=== PATIENT | male | born 1995 | race Caucasian/White ===

== ENCOUNTER 2020-02-04 02:39 | Inpatient (IN) | payer MEDICAID ==
[~2020-02-04] VITALS: Ht 195.6 cm; Wt 127.0 kg
[2020-02-04 04:34] VITALS: BMI 33.2
[2020-02-04 04:39] VITALS: BP 134/77
[2020-02-04] MEDS ORDERED: WELLBUTRIN XL150 M1 PO (05:14)
[2020-02-04] MEDS ORDERED: BENADRYL25 MG PO (05:15)
[2020-02-04] MEDS ORDERED: PROTONIX40 MG PO (05:29)
[2020-02-04 07:24] LABS: BASOPHILS 0.1 % (0-2); EOSINOPHILS 0.1 % (0-7); HEMATOCRIT 41.5 % (42.0-54.0); HEMOGLOBIN 14.1 g/dL (13.5-17.5); IMMATURE GRANULOCYTES 0.3 % (0-5); LYMPHOCYTES 8.9 % (15-50); MCH 30.1 pg (26.0-34.0); MCV 88.5 fL (80.0-100.0); MEAN PLATELET VOLUME 9.3 fL (7.4-10.4); MONOCYTES 8.7 % (2-11); NEUTROPHILS 81.9 % (40-80); PLATELET COUNT 186 10x3/uL (130-400); RBC 4.69 10x6/uL (4.20-6.10); RDW 13.2 % (11.5-14.5); WBC 14.9 10x3/uL (4.8-10.8)
[2020-02-04 08:00] VITALS: BP 131/88
[2020-02-04 08:02] LABS: CALC OSMOLALITY 280 mosm/kg (275-300); CALCIUM 8.3 mg/dL (8.5-10.1); CARBON DIOXIDE 22.9 mmol/L (21.0-32.0); CHLORIDE - SERUM 104 mmol/L (98-107); CHOL - HDL RATIO 5.9 ratio (2.3-4.9); CHOLESTEROL, TOTAL 148 mg/dL (0-200); CKMB 34.2 U/L (0.0-3.6); CREATININE - SERUM 4.5 mg/dL (0.6-1.3); GLUCOSE 96 mg/dL (74-106); HDL CHOLESTEROL 25 mg/dL (32-96); LDL CHOLESTEROL 52 mg/dL (0-100); LDL-HDL RATIO 2.1 ratio (1.5-3.5); PHOSPHOROUS 4.2 mg/dL (2.5-4.9); POTASSIUM - SERUM 5.4 mmol/L (3.5-5.1); SODIUM 138 mmol/L (136-145); TRIGLYCERIDE 358 mg/dL (30-200); UREA NITROGEN 27 mg/dL (7-18); eGFR NON AFRICAN AMERICAN 17 mL/min (90-120)
[2020-02-04 08:15] LABS: CREATINE KINASE 24853 UL (21-232)
[2020-02-04 08:22] VITALS: BMI 33.2
[2020-02-04 08:22] LABS: TROPONIN-I 0.963 ng/mL (0.000-0.060)
[2020-02-04 08:36] VITALS: BP 131/88
[2020-02-04 11:25] LABS: CKMB 35.1 U/L (0.0-3.6)
[2020-02-04 11:26] LABS: CREATINE KINASE 25109 UL (21-232); TROPONIN-I 0.788 ng/mL (0.000-0.060)
[2020-02-04 12:00] VITALS: BP 130/85
[2020-02-04 16:00] VITALS: BP 138/77
[2020-02-04 16:24] LABS: CKMB 39.5 U/L (0.0-3.6)
[2020-02-04 16:33] LABS: CREATINE KINASE 24260 UL (21-232); TROPONIN-I 0.697 ng/mL (0.000-0.060)
[2020-02-04 20:46] VITALS: BP 121/76
[2020-02-04 21:37] LABS: CKMB 31.7 U/L (0.0-3.6)
[2020-02-04 21:38] LABS: CREATINE KINASE 23600 UL (21-232)
[2020-02-04 21:39] LABS: TROPONIN-I 0.641 ng/mL (0.000-0.060)
[2020-02-05 04:45] VITALS: BP 140/86
[2020-02-05 06:12] LABS: BASOPHILS 0.2 % (0-2); EOSINOPHILS 0.6 % (0-7); HEMATOCRIT 37.4 % (42.0-54.0); HEMOGLOBIN 12.6 g/dL (13.5-17.5); IMMATURE GRANULOCYTES 0.4 % (0-5); MCH 30.2 pg (26.0-34.0); MCHC 33.7 g/dL (31.0-37.0); MCV 89.7 fL (80.0-100.0); MEAN PLATELET VOLUME 9.8 fL (7.4-10.4); MONOCYTES 8.8 % (2-11); PLATELET COUNT 190 10x3/uL (130-400); RBC 4.17 10x6/uL (4.20-6.10); RDW 13.2 % (11.5-14.5)
[2020-02-05 06:19] LABS: WBC 9.5 10x3/uL (4.8-10.8)
[2020-02-05 06:40] LABS: ALBUMIN 3.4 g/dL (3.4-5.0); ALKALINE PHOSPHATASE 50 U/L (30-120); ALT (SGPT) 119 U/L (10-68); BILIRUBIN - TOTAL 1.16 mg/dL (0.2-1.3); CALCIUM 8.3 mg/dL (8.5-10.1); CARBON DIOXIDE 21.7 mmol/L (21.0-32.0); CHLORIDE - SERUM 104 mmol/L (98-107); GLUCOSE 85 mg/dL (74-106); POTASSIUM - SERUM 4.9 mmol/L (3.5-5.1); PROTEIN - SERUM 6.3 g/dL (6.4-8.2); SODIUM 139 mmol/L (136-145)
[2020-02-05 06:45] LABS: CALC OSMOLALITY 286 mosm/kg (275-300); CREATINE KINASE 19900 UL (21-232); CREATININE - SERUM 7.3 mg/dL (0.6-1.3); UREA NITROGEN 40 mg/dL (7-18); eGFR NON AFRICAN AMERICAN 10 mL/min (90-120)
[2020-02-05 08:00] VITALS: BP 149/94
[2020-02-05 10:08] VITALS: Ht 195.6 cm; Wt 127.0 kg
[2020-02-05 10:49] LABS: BILIRUBIN NEGATIVE (NEGATIVE); KETONE NEGATIVE (NEGATIVE); NITRITE NEGATIVE (NEGATIVE); UROBILINOGEN NORMAL (NORMAL)
[2020-02-05 10:51] LABS: BACTERIA FEW /hpf (NONE SEEN); WHITE CELLS - URINE 0-5 /hpf (0-5)
[2020-02-05 10:52] LABS: UDS - AMPHET NEGATIVE QUAL (NEGATIVE); UDS - BARB NEGATIVE QUAL (NEGATIVE); UDS - BENZO NEGATIVE QUAL (NEGATIVE); UDS - COCAINE NEGATIVE QUAL (NEGATIVE); UDS - OPIATE NEGATIVE QUAL (NEGATIVE); UDS - PCP NEGATIVE QUAL (NEGATIVE); UDS - THC POSITIVE QUAL (NEGATIVE)
[2020-02-05 12:00] VITALS: BP 165/90
[2020-02-05] MEDS ORDERED: CIALIS10 MG PO (12:36)
--- NOTE | 2020-02-05 14:27 | NUR ---
14FRENCH NEWMAN CATHETER PLACED. ONLY HAD 10CC OF URINE OUT.
[2020-02-05 15:59] LABS: ANION GAP 15.4 mmol/L (8-16); CARBON DIOXIDE 20.3 mmol/L (21.0-32.0); CREATININE - SERUM 8.1 mg/dL (0.6-1.3); POTASSIUM - SERUM 4.7 mmol/L (3.5-5.1)
[2020-02-05 16:08] LABS: PHOSPHOROUS 5.6 mg/dL (2.5-4.9)
[2020-02-05 16:15] VITALS: BP 139/79
--- NOTE | 2020-02-05 21:10 | NUR ---
INITIAL ROUNDS AND ASSESSMENT COMPLETED. PT RESTING IN BED. IVF INFUSING. NONLABORED RESPIRATIONS ON ROOM AIR. NEWMAN PATENT TO BEDSIDE DRAIN BAG. CPOC.
[2020-02-05 21:30] VITALS: BP 160/97
--- NOTE | 2020-02-05 22:57 | NUR ---
BEDTIME MEDS GIVEN. IVF INFUSING AT 200ML/HR. NEWMAN PATENT. PT ALSO GIVEN ZOFRAN FOR NAUSEA. CPOC.
[2020-02-06 04:30] VITALS: BP 134/85
[2020-02-06 06:04] LABS: BASOPHILS 0.3 % (0-2); EOSINOPHILS 0.4 % (0-7); HEMATOCRIT 35.6 % (42.0-54.0); IMMATURE GRANULOCYTES 0.1 % (0-5); MCH 29.9 pg (26.0-34.0); MCHC 33.7 g/dL (31.0-37.0); MCV 88.6 fL (80.0-100.0); MEAN PLATELET VOLUME 9.8 fL (7.4-10.4); MONOCYTES 9.2 % (2-11); PLATELET COUNT 153 10x3/uL (130-400); RBC 4.02 10x6/uL (4.20-6.10); WBC 7.4 10x3/uL (4.8-10.8)
[2020-02-06 06:36] LABS: ALBUMIN 3.3 g/dL (3.4-5.0); ALKALINE PHOSPHATASE 56 U/L (30-120); ALT (SGPT) 128 U/L (10-68); CALC OSMOLALITY 288 mosm/kg (275-300); CALCIUM 8.3 mg/dL (8.5-10.1); CARBON DIOXIDE 20.7 mmol/L (21.0-32.0); CHLORIDE - SERUM 105 mmol/L (98-107); CKMB 13.3 U/L (0.0-3.6); CREATININE - SERUM 9.3 mg/dL (0.6-1.3); GLUCOSE 85 mg/dL (74-106); PROTEIN - SERUM 6.2 g/dL (6.4-8.2); SODIUM 138 mmol/L (136-145); UREA NITROGEN 51 mg/dL (7-18); eGFR NON AFRICAN AMERICAN 7 mL/min (90-120)
[2020-02-06 06:37] LABS: POTASSIUM - SERUM 5.5 mmol/L (3.5-5.1)
[2020-02-06 06:53] LABS: CREATINE KINASE 18800 UL (21-232)
--- NOTE | 2020-02-06 07:24 | NUR ---
PT UP TO THE BATHROOM, STATES THAT EVERYTIME HE HAS A BM THERE IS BLOOD IN HIS STOOL. ASKED PT IF HE HAS HEMORRHOIDS AND PT STATED NO. WILL PLACED HAT IN BATHROOM TO SEE WHAT HIS STOOL LOOKS LIKE NEXT TIME HE HAS A BM. 4MF OF ZOFRAN GIVEN AT THIS TIME FOR NAUSEA. PT A/O X4, RT WRIST IV INFUSING NS AT 200CC/HR. NEWMAN DRAINING YELLOW URINE TO GRAVITY. PT DENIES ANY OTHER NEEDS AT THIS TIME. CALL LIGHT IN REACH, NAD NOTED, WILL CONTINUE PLAN OF CARE.
--- NOTE | 2020-02-06 08:40 | NUR ---
NOTIFIED DR. HANNA OF HIGH BP.
--- NOTE | 2020-02-06 08:58 | NUR ---
CALLED PHARMACY AND SPOKE WITH SANIA, INFORMED HIM THAT I NEED METHADONE FOR PT, NOT ENOUGH TABLETS IN PYXIS. ALSO ASKED HIM IF SODIUM BICARB ORDERED IS IV PUSH, AND HE STATED THAT IT WAS GIVEN IV PUSH.
[2020-02-06 09:46] VITALS: BP 166/97
--- NOTE | 2020-02-06 10:27 | NUR ---
CALLED PHARMACY AGAIN AND SPOKE WITH SANIA, INFOMRED HIM THAT I STILL NEED METHODONE FOR PT IF HE WANTS ME TO PUT NOT GIVEN DUE TO MEDICATION NOT BEING AVAILABLE. PER SANIA A SUPERVISING LIBRARIAN IS ON HIS WAY WITH MEDICATION.
--- NOTE | 2020-02-06 12:00 | NUR ---
UPDATED PT'S FATHER ON PLAN OF CARE.
[2020-02-06 13:05] VITALS: BP 158/90
[2020-02-06 13:12] LABS: ANION GAP 19.8 mmol/L (8-16); CALCIUM 8.3 mg/dL (8.5-10.1); CARBON DIOXIDE 17.8 mmol/L (21.0-32.0); POTASSIUM - SERUM 4.6 mmol/L (3.5-5.1)
[2020-02-06 13:59] VITALS: BP 158/90
[2020-02-06 16:09] VITALS: BP 157/90
--- NOTE | 2020-02-06 20:00 | NUR ---
REPORT REIEVED AND ROUNDING COMPLETE. PATIENT USING THE REST ROOM WHEN I ENTERED, WAS CONCERNED BECAUSE THERE WAS BLOOD ON THE TOILETPAPER. DISCUSSED THIS AND DID SOME TEACHING. PATIENT THEN STATES HE IS NAUSEOUS AND NEEDED SOMETHING, TREATED PER MAR. NO DISTRESS NOTED AT THIS TIME. NEWMAN CATH IN PLACE WITH CLEAR URINE IN COLLECTION BAG. CALL LIGHT WITHIN REACH AND BED IN LOWEST LOCKED POSITION.
[2020-02-07 04:00] VITALS: BP 156/94
[2020-02-07 06:21] LABS: BASOPHILS 0.3 % (0-2); EOSINOPHILS 1.2 % (0-7); HEMATOCRIT 34.7 % (42.0-54.0); HEMOGLOBIN 12.4 g/dL (13.5-17.5); IMMATURE GRANULOCYTES 0.3 % (0-5); LYMPHOCYTES 15.6 % (15-50); MCH 31.2 pg (26.0-34.0); MCHC 35.7 g/dL (31.0-37.0); MCV 87.2 fL (80.0-100.0); MONOCYTES 10.7 % (2-11); NEUTROPHILS 71.9 % (40-80); PLATELET COUNT 177 10x3/uL (130-400); RBC 3.98 10x6/uL (4.20-6.10); WBC 6.8 10x3/uL (4.8-10.8)
[2020-02-07 06:49] LABS: ALBUMIN 3.5 g/dL (3.4-5.0); ALKALINE PHOSPHATASE 62 U/L (30-120); ALT (SGPT) 120 U/L (10-68); BILIRUBIN - TOTAL 1.81 mg/dL (0.2-1.3); CALC OSMOLALITY 288 mosm/kg (275-300); CALCIUM 8.3 mg/dL (8.5-10.1); CARBON DIOXIDE 20.5 mmol/L (21.0-32.0); CHLORIDE - SERUM 105 mmol/L (98-107); CKMB 8.2 U/L (0.0-3.6); CREATININE - SERUM 10.2 mg/dL (0.6-1.3); GLUCOSE 74 mg/dL (74-106); POTASSIUM - SERUM 5.1 mmol/L (3.5-5.1); PROTEIN - SERUM 6.5 g/dL (6.4-8.2); SODIUM 137 mmol/L (136-145); UREA NITROGEN 56 mg/dL (7-18); URIC ACID 17.6 mg/dL (2.6-7.2); eGFR NON AFRICAN AMERICAN 7 mL/min (90-120)
[2020-02-07 07:08] LABS: CREATINE KINASE 9242 UL (21-232)
[2020-02-07 07:50] VITALS: BP 155/98
[2020-02-07 11:46] VITALS: BP 156/96
--- NOTE | 2020-02-07 12:21 | NUR ---
Nutrition Follow-up: Poor PO intake 2/2 associated N/V. Reports diarrhea as well. Agreed to try Nepro. Diet: Renal PO intake: 0% x 7 meals No new wt; last wt: 280# (02/03) Last BM: 02/06 Labs noted: K+ 5.1, Ca 8.3, PO4 6.0, Alb 3.5 Meds noted: Pepcid, NS @ 200, electrolyte protocol -Encourage PO intake and honor food preferences within diet restrictions. -Nepro sent with lunch today for pt trial. -Need new wt; noted daily wts ordered. -RD following.
--- NOTE | 2020-02-07 13:19 | NUR ---
IV RESTARTED TO LEFT HAND WITH 22 GAUGE CATH X 2 STICKS AND FLEUSED WITH NS. LINE IS PATENT. 24 HR URINE STARTED. WILL MONITOR.
[2020-02-07 16:11] VITALS: BP 150/94
--- NOTE | 2020-02-07 16:13 | MORECARE ---
"CASE MANAGEMENT DISCHARGE SUMMARY PATIENT: MAGDALENE RHODES UNIT: [id number] ADM DATE: 02/04/20 AGE: 24 : [birth year] SEX: M ROOM/BED: D.2114 AUTHOR: SUSAN,DOC PHYSICIAN: REFERRING PHYSICIAN: JAMAAL COLEMAN MD DATE OF SERVICE: 02/07/20 Discharge Plan Patient Name: MAGDALENE RHODES Facility: [facility]:[place] : 1995 Planned Disposition: Home Anticipated Discharge Date: Discharge Date: Expected LOS: Initial Reviewer: [email or web address] Initial Review Date: 02/04/2020 Generated: 02/07/20 5:13 pm Comments DCP- Discharge Planning Updated by [email or web address]: Kelvin Wilkins on 02/07/20 2:[address] Patient Name: MAGDALENE RHODES Admission Status: Elective Accout number: [id number] Admission Date: 02-04-2020 : 1995 Admission Diagnosis: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 CM educated patient on the CM role and verbal consent given by patient to complete assessment. CM verified patient's address, phone number, and emergency contact phone numbers. Patient lives at with his mother (Ashleigh Lee | [phone]) and family. At discharge patient plans to return home and feels this is a safe discharge. CM discussed availability of home health, rehab services, and medical equipment. Patient denied known discharge needs at this time. Transportation provider at discharge will be his mother, Ashleigh . CM will continue to follow and will assist as needed with dc plans/needs. Clinical Athletic Instructor: Kelvin Wilkins DCPIA - Discharge Planning Initial Assessment Updated by [email or web address]: Kelvin Wilkins on 02/07/20 3:58 pm * Is the patient Alert and Oriented? Yes * How many steps to enter\\exit or inside your home? 0/0 * PCP Lonnie Albright MD ([facility] [place]) * Pharmacy [facility] in [place] * Preadmission Environment Home with Family * ADLs Independent * Equipment None * Other Equipment n/a * List name and contact numbers for known caregivers / representatives who currently or will assist patient after discharge: Ashleigh Lee, Mother - [phone] * Verbal permission to speak to the caregivers and representatives has been obtained from the patient. Yes * Community resources currently utilized None * Please name any agencies selected above. n/a * Additional services required to return to the preadmission environment? No * Can the patient safely return to the preadmission environment? Yes * Has this patient been hospitalized within the prior 30 days at any hospital? No Patient Name: MAGDALENE RHODES Page [id number] at 1613 All edits/amendments must be made on the electronic document DICTATION DATE: 02/07/201612 FIBER TECHNICIAN: ANTONELLA 02/07/201612 RPT#: [id number] DC DATE: STATUS: ADM IN [facility] [address] [place] [address] END OF REPORT"
[2020-02-07] MEDS ORDERED: LUNESTA2 M1 PO (19:00)
--- NOTE | 2020-02-07 19:13 | NUR ---
REPORT RECEIVED AND ROUNDING COMPLETE. PATIENT IS SITTING UP IN THE MIDDLE OF HIS BED. PATIENT STATES HE IS STILL NEEDIGN ZOFRAN EVERY 4 HRS AND STILL HAS N/V INBETWEEN. PATIENT HAS A RIGHT WRIST PIV THAT IS RUNNING FLUIDS AT THIS TIME. NEWMAN CATH IS IN PLACE AND URINE IS CLEAR. WE ALSO DISCUSSED HIS 24 HR URINE COLLECTION. PATIENT SHOWS NO DISTRESS AT THIS TIME. CALL LIGHT WITHIN REACH AND BED IN LOWEST LOCKED POSITION. NO NEEDS VOICED, PATIENT IS A&O X4.
[2020-02-07 20:43] VITALS: BP 151/95
[2020-02-08] VITALS: BP 160/105
[2020-02-08 04:00] VITALS: BP 150/90
[2020-02-08 06:21] LABS: BASOPHILS 0.5 % (0-2); EOSINOPHILS 3.3 % (0-7); HEMATOCRIT 31.9 % (42.0-54.0); HEMOGLOBIN 10.9 g/dL (13.5-17.5); IMMATURE GRANULOCYTES 0.5 % (0-5); LYMPHOCYTES 18.6 % (15-50); MCH 29.8 pg (26.0-34.0); MCHC 34.2 g/dL (31.0-37.0); MCV 87.2 fL (80.0-100.0); MEAN PLATELET VOLUME 9.6 fL (7.4-10.4); MONOCYTES 9.5 % (2-11); NEUTROPHILS 67.6 % (40-80); PLATELET COUNT 181 10x3/uL (130-400); RBC 3.66 10x6/uL (4.20-6.10); WBC 5.8 10x3/uL (4.8-10.8)
[2020-02-08 06:51] LABS: ALKALINE PHOSPHATASE 51 U/L (30-120); BILIRUBIN - TOTAL 1.97 mg/dL (0.2-1.3); CALC OSMOLALITY 292 mosm/kg (275-300); CALCIUM 7.9 mg/dL (8.5-10.1); CARBON DIOXIDE 19.9 mmol/L (21.0-32.0); CHLORIDE - SERUM 109 mmol/L (98-107); CKMB 4.9 U/L (0.0-3.6); CREATININE - SERUM 8.3 mg/dL (0.6-1.3); GLUCOSE 78 mg/dL (74-106); PROTEIN - SERUM 5.9 g/dL (6.4-8.2); SODIUM 141 mmol/L (136-145); UREA NITROGEN 49 mg/dL (7-18); eGFR NON AFRICAN AMERICAN 8 mL/min (90-120)
[2020-02-08 07:03] LABS: ALT (SGPT) 88 U/L (10-68); CREATINE KINASE 3309 UL (21-232); POTASSIUM - SERUM 4.2 mmol/L (3.5-5.1)
[2020-02-08 07:42] VITALS: BP 169/119
[2020-02-08 11:29] VITALS: BP 158/106
--- NOTE | 2020-02-08 13:12 | NUR ---
24 HR URINE COLLECTED AND TAKEN TO LAB. WILL MONITOR.
[2020-02-08 15:30] VITALS: BP 179/114
--- NOTE | 2020-02-08 17:12 | NUR ---
1710- STARTED TO RT WRIST X 2 ATTEMPTS WITH A 22 G.
--- NOTE | 2020-02-08 19:12 | NUR ---
PAGED RENAL FOR UNCONTROLABLE N/V.
--- NOTE | 2020-02-08 19:27 | NUR ---
REPORT RECIEVED AND ROUNDING COMPLETE. PATIENT STANDING UP IN HIS ROOM, PATIENT STATES THE N/V IS JUST GETTING WORSE. I PAGED RENAL. PATIENT HAS A RIGHT WRIST PIV THAT IS PATENT AND RUNNING FLUIDS AT THIS TIME. PATIENT ASKED FOR A [place] SODA WHICH HE RECIEVED. PATIENT JUST STATES THAT HE WANTS THE N/V TO PLEASE STOP AND THAT HE DOESNT KNOW WHO MUCH MORE HE CAN TAKE. NO DISTRESS NOTED. CALL LIGHT LAYING IN THE BED.
--- NOTE | 2020-02-08 20:58 | NUR ---
RENAL AP CALLED BACK, NEW ORDERS GIVEN AND NEW ORDERS WILL BE FOLLOWED.
[2020-02-08 21:11] VITALS: BP 156/95
[2020-02-09] VITALS (9 sets, daily range): BP systolic 145–187; BP diastolic 84–109
[2020-02-09 06:38] LABS: BASOPHILS 0.6 % (0-2); EOSINOPHILS 4.4 % (0-7); HEMATOCRIT 34.1 % (42.0-54.0); HEMOGLOBIN 11.7 g/dL (13.5-17.5); IMMATURE GRANULOCYTES 0.7 % (0-5); LYMPHOCYTES 20.9 % (15-50); MCHC 34.3 g/dL (31.0-37.0); MCV 87.4 fL (80.0-100.0); MEAN PLATELET VOLUME 9.3 fL (7.4-10.4); MONOCYTES 13.5 % (2-11); NEUTROPHILS 59.9 % (40-80); PLATELET COUNT 184 10x3/uL (130-400); RDW 13.4 % (11.5-14.5)
[2020-02-09 07:14] LABS: ALBUMIN 3.3 g/dL (3.4-5.0); ALKALINE PHOSPHATASE 52 U/L (30-120); ALT (SGPT) 82 U/L (10-68); BILIRUBIN - TOTAL 1.85 mg/dL (0.2-1.3); CALC OSMOLALITY 293 mosm/kg (275-300); CALCIUM 8.5 mg/dL (8.5-10.1); CARBON DIOXIDE 23.4 mmol/L (21.0-32.0); CHLORIDE - SERUM 108 mmol/L (98-107); CKMB 3.4 U/L (0.0-3.6); CREATININE - SERUM 7.1 mg/dL (0.6-1.3); GLUCOSE 78 mg/dL (74-106); POTASSIUM - SERUM 4.6 mmol/L (3.5-5.1); PROTEIN - SERUM 6.4 g/dL (6.4-8.2); SODIUM 142 mmol/L (136-145); UREA NITROGEN 45 mg/dL (7-18); eGFR NON AFRICAN AMERICAN 10 mL/min (90-120)
[2020-02-09 07:22] LABS: CREATINE KINASE 1336 UL (21-232)
[2020-02-09 10:12] LABS: URIC ACID - 24HR (URINE) 15.2 mg/dL (Not Estab.)
--- NOTE | 2020-02-09 12:52 | NUR ---
Nutrition Follow-up: Pt unavailable at time of visit this AM. Chart reviewed. 0% recorded for breakfast this AM. Diet: Renal PO intake: 0-25% No new wt; last wt: 280# (02/03) Labs noted: K+ 4.6, Alb 3.3, PO4 6.0 (02/06) Meds noted: Zofran, Pepcid, NS @ 200, electrolyte protocol -Encourage PO intake and honor food preferences within diet restrictions. -Need new wt; noted daily wts ordered. -RD following.
--- NOTE | 2020-02-09 21:59 | NUR ---
RAPID RESONDED TO PT ON CAMODE, DIAPHORETIC AND SHAKING. BP ELEVATED, GAVE APRESOLINE PRN PER ORDERS, BP SLIGHTLY LOWERED, CALLED MILITARY TECHNOLOGY MANAGER MD. OSCAR STEAM BOILER FIREMAN WITH ORDERS FOR VS Q1H X4 AND TO CALL IF SYMPTOMS PERSIST AND TO GIVE ORDERED ATIVAN. SEE RAPID RESPONSE PAPERWORK FOR FURTHER DETAILS TO RESPONSE.
[2020-02-09 22:22] LABS: BASOPHILS 0.6 % (0-2); EOSINOPHILS 4.6 % (0-7); HEMATOCRIT 40.5 % (42.0-54.0); HEMOGLOBIN 13.9 g/dL (13.5-17.5); IMMATURE GRANULOCYTES 1.1 % (0-5); LYMPHOCYTES 21.9 % (15-50); MCH 30.4 pg (26.0-34.0); MCHC 34.3 g/dL (31.0-37.0); MCV 88.6 fL (80.0-100.0); MEAN PLATELET VOLUME 9.4 fL (7.4-10.4); MONOCYTES 8.5 % (2-11); NEUTROPHILS 63.3 % (40-80); RBC 4.57 10x6/uL (4.20-6.10); RDW 13.3 % (11.5-14.5)
[2020-02-09 22:26] LABS: ANION GAP 19.8 mmol/L (8-16); CALCIUM 9.3 mg/dL (8.5-10.1); CARBON DIOXIDE 22.6 mmol/L (21.0-32.0); CREATININE - SERUM 6.1 mg/dL (0.6-1.3); POTASSIUM - SERUM 4.4 mmol/L (3.5-5.1)
[2020-02-09 22:30] LABS: PLATELET COUNT 250 10x3/uL (130-400); WBC 9.5 10x3/uL (4.8-10.8)
[2020-02-09 22:32] LABS: BILIRUBIN - TOTAL 2.08 mg/dL (0.2-1.3)
[2020-02-09 22:39] LABS: ALBUMIN 4.3 g/dL (3.4-5.0); PROTEIN - SERUM 8.1 g/dL (6.4-8.2)
--- NOTE | 2020-02-09 23:30 | NUR ---
SABINA OSCAR STATES TO GIVE CLONIDINE WHEN AND IF B/P GETS 180/110. THEN TO CALL RENAL IF IT GOES BACK UP.
[2020-02-10] VITALS (7 sets, daily range): BP systolic 122–164; BP diastolic 83–109
--- NOTE | 2020-02-10 03:11 | NUR ---
GAVE APRESOLINE PER MAR FOR B/P OF
[2020-02-10 06:47] LABS: BASOPHILS 0.4 % (0-2); EOSINOPHILS 4.3 % (0-7); HEMATOCRIT 38.1 % (42.0-54.0); HEMOGLOBIN 13.2 g/dL (13.5-17.5); IMMATURE GRANULOCYTES 0.7 % (0-5); LYMPHOCYTES 14.2 % (15-50); MCH 30.2 pg (26.0-34.0); MCHC 34.6 g/dL (31.0-37.0); MCV 87.2 fL (80.0-100.0); MEAN PLATELET VOLUME 9.7 fL (7.4-10.4); MONOCYTES 9.6 % (2-11); NEUTROPHILS 70.8 % (40-80); PLATELET COUNT 223 10x3/uL (130-400); RBC 4.37 10x6/uL (4.20-6.10); RDW 13.4 % (11.5-14.5); WBC 7.6 10x3/uL (4.8-10.8)
[2020-02-10 07:06] LABS: ALBUMIN 3.9 g/dL (3.4-5.0); ANION GAP 18.2 mmol/L (8-16); BILIRUBIN - TOTAL 1.85 mg/dL (0.2-1.3); CALCIUM 9.1 mg/dL (8.5-10.1); CARBON DIOXIDE 22.2 mmol/L (21.0-32.0); CREATININE - SERUM 5.2 mg/dL (0.6-1.3); POTASSIUM - SERUM 4.4 mmol/L (3.5-5.1)
[2020-02-11 02:07] VITALS: BP 138/96
[2020-02-11 04:40] LABS: BASOPHILS 0.6 % (0-2); EOSINOPHILS 4.6 % (0-7); HEMATOCRIT 39.6 % (42.0-54.0); HEMOGLOBIN 13.4 g/dL (13.5-17.5); IMMATURE GRANULOCYTES 0.6 % (0-5); LYMPHOCYTES 22.5 % (15-50); MCH 30.1 pg (26.0-34.0); MCHC 33.8 g/dL (31.0-37.0); MONOCYTES 9.4 % (2-11); NEUTROPHILS 62.3 % (40-80); PLATELET COUNT 194 10x3/uL (130-400); RBC 4.45 10x6/uL (4.20-6.10); RDW 13.4 % (11.5-14.5)
[2020-02-11 04:57] LABS: ALBUMIN 3.8 g/dL (3.4-5.0); BILIRUBIN - TOTAL 1.63 mg/dL (0.2-1.3); CALCIUM 9.2 mg/dL (8.5-10.1); CARBON DIOXIDE 29.3 mmol/L (21.0-32.0); CREATININE - SERUM 4.6 mg/dL (0.6-1.3); POTASSIUM - SERUM 4.3 mmol/L (3.5-5.1); PROTEIN - SERUM 7.4 g/dL (6.4-8.2)
[2020-02-11 05:51] VITALS: BP 105/75
[2020-02-11 07:00] VITALS: BP 166/99
--- NOTE | 2020-02-11 07:30 | NUR ---
PT RESTING COMFORTABLY IN BED WITH EYES CLOSED. RESP EVEN AND NONLABORED ON RA. RT WRIST INFUSING ZOFRAN DRIP AT 4.7. HEART MONITOR SHOWING SB WITH RATE OF 50. NEWMAN DRAINING YELLOW URINE TO GRAVITY. CALL LIGHT IN REACH, NAD NOTED,W ILL CONTINUE TO MONITOR.
[2020-02-11 11:00] VITALS: BP 136/74
--- NOTE | 2020-02-11 12:57 | NUR ---
NEWMAN CATHTER REMOVED WITH CATHETER TIP INTACT.
[2020-02-11 15:00] VITALS: BP 135/88
--- NOTE | 2020-02-11 15:15 | NUR ---
2MG OF ATIVAN PER PT REQUEST. PT DENIES ANY OTHER NEEDS AT THIS TIME. CALL LIGHT IN REACH, NAD NOTED, WILL CONTINUE TO MONITOR.
--- NOTE | 2020-02-11 19:54 | NUR ---
INITIAL ROUNDS AND ASSESSMENT COMPLETED. PT RESTING IN BED. NO DISTRESS. CPOC. CALL LIGHT IN REACH.
--- NOTE | 2020-02-11 21:42 | NUR ---
BEDTIME MEDS GIVEN. REQUESTED LUNESTA GIVEN. PT UP AND AMBULATING IN ROOM. ALERT/COOPERATIVE. CPOC.
[2020-02-11 21:52] VITALS: BP 141/93
--- NOTE | 2020-02-12 00:46 | NUR ---
PT GIVEN IV ATIVAN EARLIER AT HIS REQUEST AND IS NOW RESTING WITH EYES CLOSED. IV ZOFRAN INFUSING. CPOC.
[2020-02-12 02:00] VITALS: BP 143/100
--- NOTE | 2020-02-12 03:00 | NUR ---
RESTING IN BED. NO DISTRESS. SR/75 PER TELEMETRY. CPOC.
[2020-02-12 06:16] LABS: BASOPHILS 0.6 % (0-2); EOSINOPHILS 4.1 % (0-7); HEMATOCRIT 40.1 % (42.0-54.0); HEMOGLOBIN 13.4 g/dL (13.5-17.5); IMMATURE GRANULOCYTES 0.4 % (0-5); LYMPHOCYTES 34.7 % (15-50); MCH 30.1 pg (26.0-34.0); MCHC 33.4 g/dL (31.0-37.0); MCV 90.1 fL (80.0-100.0); MEAN PLATELET VOLUME 9.5 fL (7.4-10.4); MONOCYTES 8.8 % (2-11); NEUTROPHILS 51.4 % (40-80); PLATELET COUNT 189 10x3/uL (130-400); RBC 4.45 10x6/uL (4.20-6.10); RDW 13.2 % (11.5-14.5); WBC 7.2 10x3/uL (4.8-10.8)
[2020-02-12 06:19] VITALS: BP 164/103
[2020-02-12 06:37] LABS: ANION GAP 10.8 mmol/L (8-16); BILIRUBIN - TOTAL 1.17 mg/dL (0.2-1.3); CALCIUM 8.9 mg/dL (8.5-10.1); CARBON DIOXIDE 31.2 mmol/L (21.0-32.0); CREATININE - SERUM 3.8 mg/dL (0.6-1.3); PROTEIN - SERUM 7.7 g/dL (6.4-8.2); URIC ACID 11.3 mg/dL (2.6-7.2)
[2020-02-12 08:12] VITALS: BP 151/88
--- NOTE | 2020-02-12 09:25 | NUR ---
AM MEDS GIVEN AT THIS TIME. PT UP AD NAVYA IN ROOM. A/O X4, RESP EVEN AND NONLABORED ON RA. RT WRIST INFUSING ZOFARN AT 4.7. PT DENIES ANY NEEDS AT THIS TIME. CALL LIGHT IN REACH, NAD NOTED,WILL CONTINUE PLAN OF CARE.
[2020-02-12] MEDS ORDERED: NORVASC10 MG PO (10:43)
[2020-02-12] MEDS ORDERED: ZOFRAN ODT4 MG/UDTAB PO (10:43)
[2020-02-12] MEDS ORDERED: PEPCID AC20 MG PO (10:47)
--- NOTE | 2020-02-12 11:42 | MORECARE ---
"CASE MANAGEMENT DISCHARGE SUMMARY PATIENT: MAGDALENE RHODES UNIT: [id number] ADM DATE: 02/04/20 AGE: 24 : [birth year] SEX: M ROOM/BED: D.2114 AUTHOR: SUSAN,DOC PHYSICIAN: REFERRING PHYSICIAN: JAMAAL COLEMAN MD DATE OF SERVICE: 02/12/20 Discharge Plan Patient Name: MAGDALENE RHODES Facility: [facility]:[place] : 1995 Planned Disposition: Home Anticipated Discharge Date: Discharge Date: Expected LOS: Initial Reviewer: [email or web address] Initial Review Date: 02/04/2020 Generated: 02/12/20 12:41 pm Comments DCP- Discharge Planning Updated by [email or web address]: Kelvin Wilkins on 02/12/20 10:[address] Patient Name: MAGDALENE RHODES Encounter No: [id number] : 1995 Primary Insurance: [facility] Anticipated DC Date: Planned Disposition: Home External Planned Provider: : DCP follow-up note: Patient and family in agreement with discharge plan. No changes to plan. Case management will follow and assist as needed. 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 CM educated patient on the CM role and verbal consent given by patient to complete assessment. CM verified patient's address, phone number, and emergency contact phone numbers. Patient lives at with his mother (Ashleigh Lee | [phone]) and family. At discharge patient plans to return home and feels this is a safe discharge. CM discussed availability of home health, rehab services, and medical equipment. Patient denied known discharge needs at this time. Transportation provider at discharge will be his mother, Ashleigh . CM will continue to follow and will assist as needed with dc plans/needs. Wireless Architect: Kelvin Wilkins DCPIA - Discharge Planning Initial Assessment Updated by [email or web address]: Kelvin Wilkins on 02/07/20 3:58 pm * Is the patient Alert and Oriented? Yes * How many steps to enter\\exit or inside your home? 0/0 * PCP Lonnie Albright MD ([place], [place]) * Pharmacy [facility] in [place] * Preadmission Environment Home with Family * ADLs Independent * Equipment None * Other Equipment n/a * List name and contact numbers for known caregivers / representatives who currently or will assist patient after discharge: Ashleigh Lee, Mother - [phone] * Verbal permission to speak to the caregivers and representatives has been obtained from the patient. Yes * Community resources currently utilized None * Please name any agencies selected above. n/a * Additional services required to return to the preadmission environment? No * Can the patient safely return to the preadmission environment? Yes * Has this patient been hospitalized within the prior 30 days at any hospital? No Last DP export: 02/07/20 3:13 pm Patient Name: MAGDALENE RHODES Page [phone] at 1142 All edits/amendments must be made on the electronic document DICTATION DATE: 02/12/20 1141 SHOE PARTS CASER: ANTONELLA 02/12/20 1141 RPT#: [id number] DC DATE: STATUS: ADM IN [facility] [address] [place] [address] END OF REPORT"
--- NOTE | 2020-02-12 14:02 | NUR ---
PT LEFT UNIT VIA AMBULATORY, WITH ALL BELONGINGS. NAD NOTED.
== END 2020-02-12 14:11 | disposition home or self-care (01) | DRG 917 ==
LOC: D.M2 02:39
PROVIDERS: Internal Medicine Nephrology; ADMIT Family Medicine; ATTEND Family Medicine
DX: T40.3X1A Poisoning by methadone, accidental (unintentional), initial encounter (principal); I21.A1 Myocardial infarction type 2; N17.0 Acute kidney failure with tubular necrosis; M62.82 Rhabdomyolysis; E87.5 Hyperkalemia; F32.9 Major depressive disorder, single episode, unspecified; K72.90 Hepatic failure, unspecified without coma

== ENCOUNTER → 2020-08-02 08:48 | Outpatient (CLI) | payer MEDICAID ==
[2020-05-22 09:12] VITALS: BMI 29.7
[~2020-08-02 08:48] MED LIST: BENADRYL25 MG PO; CIALIS10 MG PO; KEPPRA500 MG PO; LUNESTA2 M1 PO; NORVASC10 MG PO; PEPCID AC20 MG PO; PROTONIX40 MG PO; WELLBUTRIN XL150 M1 PO; ZOFRAN ODT4 MG/UDTAB PO
== END | disposition home or self-care (01) ==
LOC: D.MRI 08:48
PROVIDERS: ATTEND Psychiatry & Neurology Neurology
DX: R41.9 Unspecified symptoms and signs involving cognitive functions and awareness (principal)